=== PATIENT | female | born 1955 | race African-American/Black ===

== ENCOUNTER 2018-04-12 22:40 | Inpatient (IN) | payer MEDICAID, MEDICARE, OTHER ==
[~2018-04-12] VITALS: Ht 165.1 cm; Wt 61.7 kg
[2018-04-12] MEDS ORDERED: ASPIRIN81 MG ORAL (22:46)
[2018-04-12] MEDS ORDERED: SPIRONOLACTONE100 MG ORAL (22:46)
[2018-04-12] MEDS ORDERED: PANTOPRAZOLE SO40 MG ORAL (22:46)
[2018-04-12] MEDS ORDERED: FUROSEMIDE20 M1 ORAL (22:46)
[2018-04-12] MEDS ORDERED: NADOLOL20 MG ORAL (22:46)
[2018-04-12] MEDS ORDERED: LACTULOSE20 GM/301 ORAL (22:46)
[2018-04-12] MEDS ORDERED: Sodium Chloride 500ML 500 ML IV ONE (23:15)
--- NOTE | 2018-04-12 23:28 | Emergency Room Report ---
History of Present Illness General Chief Complaint: Back Pain-No Injury Source: Patient, EMS Present Illness HPI Patient is a 62-year-old female presented after increased back pain. The patient had reportedly recently been released from [facility]. She was noted to have prior history of cirrhosis as well as chronic pain. The patient was having worsening back pain. She reported had been recently transfused while in the hospital. At the time of discharge patient was noted to have hemoglobin of 8. The patient was having increased pain to her low back. This is worse with movement. Allergies: Coded Allergies: MORPHINE (Verified Allergy, Unknown, 04/12/18) Patient History Past Medical History: see triage record Last Menstrual Period: n/a Reviewed Nursing Documentation: PMH: Agreed; PSxH: Agreed Nursing Documentation-PMH Hx Cardiac Problems: Yes Hx Asthma: Yes Review of Systems All Other Systems: limited - by poor historian Physical Exam Vital Signs Date Time Temp Pulse Resp B/P (MAP) Pulse Ox O2 Delivery O2 Flow Rate FiO2 04/12/18 22:34 97.9 72 20 84/54 99 Room Air 97.9 General Appearance: alert, GCS 15, Chronically Ill Respiratory: chest non-tender, lungs clear Cardiovascular #1: normal inspection, normal peripheral pulses, regular rate, rhythm, edema Gastrointestinal: distended, tenderness Musculoskeletal: normal inspection, back normal Neurologic: normal inspection, alert, oriented x3, responsive Skin: jaundice, other - bruising to abdomen Medical Decision Making Diagnostic Impression: Primary Impression: Back pain Additional Impressions: Hypotension Urinary tract infection Cirrhosis ER Course Patient presented for abdominal pain. Differential diagnoses included ischemic bowel, appendicitis, perforated viscus, abdominal aortic aneurysm, inferior myocardial infarction, viral gastroenteritisThe patient noted to have evidence of anemia. CT the abdomen pelvis read by radiology showed a small pleural effusion with moderate ascites. The patient initially noted to be hypotensive. Dr. Wallace was contacted for inpatient management Labs Test 04/12/18 23:40 04/13/18 00:10 04/13/18 02:02 White Blood Count 13.5 K/UL (4.8-10.8) Red Blood Count 2.88 M/UL (4.20-5.40) Hemoglobin 8.7 G/DL (12.0-16.0) Hematocrit 26.6 % (37.0-47.0) Mean Corpuscular Volume 92 FL (80-99) Mean Corpuscular Hemoglobin 30.4 PG (27.0-31.0) Mean Corpuscular Hemoglobin Concent 32.9 G/DL (32.0-36.0) Red Cell Distribution Width 17.6 % (11.6-14.8) Platelet Count 90 K/UL (150-450) Mean Platelet Volume 8.8 FL (6.5-10.1) Neutrophils (%) (Auto) % (45.0-75.0) Lymphocytes (%) (Auto) % (20.0-45.0) Monocytes (%) (Auto) % (1.0-10.0) Eosinophils (%) (Auto) % (0.0-3.0) Basophils (%) (Auto) % (0.0-2.0) Prothrombin Time 19.2 SEC (9.30-11.50) Prothromb Time International Ratio 1.9 (0.9-1.1) Activated Partial Thromboplast Time 42 SEC (23-33) Sodium Level 135 MMOL/L (136-145) Potassium Level 4.6 MMOL/L (3.5-5.1) Chloride Level 103 MMOL/L (98-107) Carbon Dioxide Level 25 MMOL/L (21-32) Anion Gap 7 mmol/L (5-15) Blood Urea Nitrogen 22 mg/dL (7-18) Creatinine 1.0 MG/DL (0.55-1.30) Estimat Glomerular Filtration Rate > 60 mL/min (>60) Glucose Level 97 MG/DL (74-106) Calcium Level 8.8 MG/DL (8.5-10.1) Phosphorus Level 2.3 MG/DL (2.5-4.9) Magnesium Level 1.6 MG/DL (1.8-2.4) Total Bilirubin 13.4 MG/DL (0.2-1.0) Direct Bilirubin 3.5 MG/DL (0.0-0.3) Aspartate Amino Transf (AST/SGOT) 112 U/L (15-37) Alanine Aminotransferase (ALT/SGPT) 49 U/L (12-78) Alkaline Phosphatase 199 U/L (46-116) Total Creatine Kinase 316 U/L (26-308) Creatine Kinase MB 3.7 NG/ML (0.0-3.6) Creatine Kinase MB Relative Index 1.1 Troponin I 0.013 ng/mL (0.000-0.056) Total Protein 7.6 G/DL (6.4-8.2) Albumin 2.4 G/DL (3.4-5.0) Globulin 5.2 g/dL Albumin/Globulin Ratio 0.5 (1.0-2.7) Urine Color Yellow Urine Appearance Cloudy Urine pH 5 (4.5-8.0) Urine Specific [place] 1.020 (1.005-1.035) Urine Protein 1+ (NEGATIVE) Urine Glucose (UA) Negative (NEGATIVE) Urine Ketones 2+ (NEGATIVE) Urine Blood 4+ (NEGATIVE) Urine Nitrite Positive (NEGATIVE) Urine Bilirubin 3+ (NEGATIVE) Urine Ictotest Positive (NEGATIVE) Urine Urobilinogen 8 MG/DL (0.0-1.0) Urine Leukocyte Esterase 2+ (NEGATIVE) Urine RBC 2-4 /HPF (0 - 2) Urine WBC 5-10 /HPF (0 - 2) Urine Squamous Epithelial Cells Many /LPF (NONE/OCC) Urine Bacteria Moderate /HPF (NONE) Urine Hyaline Casts 0-2 /LPF (NONE) Urine Fine Granular Casts 0-2 /LPF (NONE) Lactic Acid Level 1.40 mmol/L (0.66-2.22) EKG Diagnostic Results Rate: normal - 71 Rhythm: NSR ST Segments: no acute changes Last Vital Signs Date Time Temp Pulse Resp B/P (MAP) Pulse Ox O2 Delivery O2 Flow Rate FiO2 04/12/18 22:34 97.9 72 20 84/54 99 Room Air 97.9 Status: unchanged Disposition: ADMITTED INPATIENT Condition: Serious Hugo Iyv MD Apr 12, 2018 23:28
[2018-04-12] MEDS ORDERED: Isovue-300 100ml vial INJ PRN (23:30)
[2018-04-13] VITALS (7 sets, daily range): BP systolic 99–106; BP diastolic 44–60
[2018-04-13 00:11] LABS: HEMATOCRIT 26.6 % (37.0-47.0); HEMOGLOBIN 8.7 G/DL (12.0-16.0); MEAN CORPUSCULAR VOLUME 92 FL (80-99); PLATELET COUNT 90 K/UL (150-450); RED BLOOD COUNT 2.88 M/UL (4.20-5.40); RED CELL DISTRIBUTION WIDTH 17.6 % (11.6-14.8); WHITE BLOOD COUNT 13.5 K/UL (4.8-10.8)
[2018-04-13 00:15] LABS: ANION GAP 7 mmol/L (5-15); BLOOD UREA NITROGEN 22 mg/dL (7-18); CALCIUM 8.8 MG/DL (8.5-10.1); CARBON DIOXIDE 25 MMOL/L (21-32); CHLORIDE 103 MMOL/L (98-107); POTASSIUM 4.6 MMOL/L (3.5-5.1); SODIUM 135 MMOL/L (136-145)
[2018-04-13 00:16] LABS: INR 1.9 (0.9-1.1)
[2018-04-13 00:22] LABS: APPEARANCE,URINE CLOUDY; BILIRUBIN, URINE 3+ (NEGATIVE); GLUCOSE, URINE (UA) NEGATIVE (NEGATIVE); KETONES,URINE 2+ (NEGATIVE); LEUKOCYTE ESTERASE ,URINE 2+ (NEGATIVE); NITRITE,URINE POSITIVE (NEGATIVE); PH,URINE 5 (4.5-8.0); PROTEIN,URINE 1+ (NEGATIVE); UROBILINOGEN,URINE 8 MG/DL (0.0-1.0)
[2018-04-13 00:28] LABS: ALANINE AMINOTRANSFERASE 49 U/L (12-78); ALBUMIN 2.4 G/DL (3.4-5.0); ALBUMIN/GLOBULIN RATIO 0.5 (1.0-2.7); ALKALINE PHOSPHATASE 199 U/L (46-116); ASPARTATE AMINO TRANSFERASE 112 U/L (15-37); BILIRUBIN,TOTAL 13.4 MG/DL (0.2-1.0); CKMB 3.7 NG/ML (0.0-3.6); CREATINE KINASE 316 U/L (26-308); PHOSPHORUS 2.3 MG/DL (2.5-4.9)
[2018-04-13 00:36] LABS: BILIRUBIN,DIRECT 3.5 MG/DL (0.0-0.3)
[2018-04-13 00:38] LABS: COLOR,URINE YELLOW
[2018-04-13] MEDS ORDERED: ALBUTEROL SULF8.5 GM INH (01:59)
[2018-04-13] MEDS ORDERED: cefTRIAXone 1 GM in NS 55 ML IVPB ONE (02:00)
[2018-04-13] MEDS ORDERED: FLUTICASONE PRO16 G1 NASAL (02:18)
[2018-04-13] MEDS ORDERED: ZYRTEC10 MG ORAL (02:18)
[2018-04-13] MEDS ORDERED: NORCO 5-325 TA1 EACH ORAL (02:24)
[2018-04-13] MEDS ORDERED: [UNRECOGNIZED DRUG - CODE] PO (02:24)
[2018-04-13] MEDS ORDERED: BREO ELLIPTA 21 EACH IH (02:24)
[2018-04-13] MEDS ORDERED: FUROSEMIDE40 MG ORAL (02:24)
[2018-04-13] MEDS ORDERED: PHYTONADIONE5 MG PO (02:24)
[2018-04-13] MEDS ORDERED: LACTULOSE10 GM/155 PO (02:24)
[2018-04-13] MEDS ORDERED: PROTONIX20 MG ORAL (02:24)
[2018-04-13] MEDS ORDERED: Morphine Sulfate 2mg/ml Inj IVP PRN (07:00)
[2018-04-13] MEDS ORDERED: Norco 5mg/325mg tab ORAL PRN (10:00)
--- NOTE | 2018-04-13 10:09 | History and Physical ---
History of Present Illness General Reason for Hospitalization: Back Pain-No Injury Present Illness HPI 62-year-old female with endstage ETOH liver cirrhosis presented to ER with CC of increased back pain. The patient had reportedly recently been released from [facility]. The patient was having worsening back pain. She was discharged to recuperative care without any pain medication. Allergies: Coded Allergies: MORPHINE (Verified Allergy, Unknown, 04/12/18) Medication History Scheduled Albuterol Sulfate* (Albuterol Sulfate Mdi*), 1 PUFF INH Q4HR, (Reported) Aspirin* (Aspirin*), Unknown Dose ORAL DAILY, (Reported) Cetirizine Hcl* (Zyrtec*), 10 MG ORAL DAILY, (Reported) Fluticasone Propionate* (Fluticasone Propionate*), 1 SPRAY NASAL TWICE A DAY, ( Reported) Furosemide* (Lasix*), 40 MG ORAL TWICE A DAY, (Reported) Lactulose (Lactulose), 45 GM PO TID, (Reported) Magnesium Oxide/Mag Aa Chelate (Magnesium 300 Mg Capsule), 500 MG PO BID, ( Reported) Nadolol (Nadolol*), Unknown Dose ORAL DAILY, (Reported) Pantoprazole Sodium (Protonix), 40 MG ORAL BID, (Reported) Pantoprazole* (Pantoprazole*), Unknown Dose ORAL DAILY, (Reported) Spironolactone* (Spironolactone*), Unknown Dose ORAL DAILY, (Reported) Scheduled PRN Hydrocodone Bit/Acetaminophen 5-325* ([place] 5-325*), 1 TAB ORAL Q4H PRN for For Pain, (Reported) Miscellaneous Medications Fluticasone/Vilanterol (Breo Ellipta 200-25 Mcg INH), 1 EACH IH, (Reported) Lactulose (Lactulose*), Unknown Dose ORAL, (Reported) Phytonadione (Vit K1) (Phytonadione), 5 MG PO, (Reported) Discontinued Medications Furosemide* (Lasix*), Unknown Dose ORAL DAILY, (Reported) Discontinued Reason: Medication dose changed Patient History Healthcare decision maker Resuscitation status Full Code Advanced Directive on File Past Medical/Surgical History Past Medical/Surgical History: (1) History of ETOH abuse Review of Systems Constitutional: Reports: malaise Musculoskeletal: Reports: back pain Physical Exam General Appearance: cachetic, other - icteric Lines, tubes and drains: peripheral HEENT: normocephalic, atraumatic, anicteric, PERRL Neck: non-tender, normal alignment Respiratory/Chest: chest wall non-tender, lungs clear Cardiovascular/Chest: normal peripheral pulses, normal rate Abdomen: normal bowel sounds Genitourinary/Rectal: normal genital exam, normal rectal exam Last 24 Hour Vital Signs Date Time Temp Pulse Resp B/P (MAP) Pulse Ox O2 Delivery O2 Flow Rate FiO2 04/13/18 08:00 Room Air 04/13/18 08:00 97.5 80 21 106/58 (74) 96 97.5 04/13/18 07:52 80 04/13/18 05:30 Room Air 04/13/18 05:00 97.8 80 16 105/50 98 Room Air 04/13/18 04:33 77 04/13/18 04:25 Room Air 04/13/18 04:25 97.7 76 20 100/60 (73) 96 97.7 04/13/18 04:20 97.9 75 16 105/50 98 Room Air 97.9 04/13/18 03:50 97.9 75 11 102/50 98 Room Air 97.9 04/13/18 02:40 97.2 75 12 99/47 98 Room Air 97.2 04/13/18 00:14 97.2 75 15 100/50 96 Room Air 97.2 04/12/18 22:34 97.9 72 20 84/54 99 Room Air 97.9 Intake and Output 04/12/18 04/13/18 19:00 07:00 Intake Total 1605 ml Balance 1605 ml Intake Oral 0 ml IV Total 1605 ml Laboratory Tests Test 04/12/18 23:40 04/13/18 00:10 04/13/18 02:02 White Blood Count 13.5 K/UL (4.8-10.8) H Red Blood Count 2.88 M/UL (4.20-5.40) L Hemoglobin 8.7 G/DL (12.0-16.0) L Hematocrit 26.6 % (37.0-47.0) L Mean Corpuscular Volume 92 FL (80-99) Mean Corpuscular Hemoglobin 30.4 PG (27.0-31.0) Mean Corpuscular Hemoglobin Concent 32.9 G/DL (32.0-36.0) Red Cell Distribution Width 17.6 % (11.6-14.8) H Platelet Count 90 K/UL (150-450) L Mean Platelet Volume 8.8 FL (6.5-10.1) Neutrophils (%) (Auto) % (45.0-75.0) Lymphocytes (%) (Auto) % (20.0-45.0) Monocytes (%) (Auto) % (1.0-10.0) Eosinophils (%) (Auto) % (0.0-3.0) Basophils (%) (Auto) % (0.0-2.0) Prothrombin Time 19.2 SEC (9.30-11.50) H Prothromb Time International Ratio 1.9 (0.9-1.1) H Activated Partial Thromboplast Time 42 SEC (23-33) H Sodium Level 135 MMOL/L (136-145) L Potassium Level 4.6 MMOL/L (3.5-5.1) Chloride Level 103 MMOL/L (98-107) Carbon Dioxide Level 25 MMOL/L (21-32) Anion Gap 7 mmol/L (5-15) Blood Urea Nitrogen 22 mg/dL (7-18) H Creatinine 1.0 MG/DL (0.55-1.30) Estimat Glomerular Filtration Rate > 60 mL/min (>60) Glucose Level 97 MG/DL (74-106) Lactic Acid Level 2.10 mmol/L (0.4-2.0) H 1.40 mmol/L (0.66-2.22) Calcium Level 8.8 MG/DL (8.5-10.1) Phosphorus Level 2.3 MG/DL (2.5-4.9) L Magnesium Level 1.6 MG/DL (1.8-2.4) L Total Bilirubin 13.4 MG/DL (0.2-1.0) H Direct Bilirubin 3.5 MG/DL (0.0-0.3) H Aspartate Amino Transf (AST/SGOT) 112 U/L (15-37) H Alanine Aminotransferase (ALT/SGPT) 49 U/L (12-78) Alkaline Phosphatase 199 U/L (46-116) H Total Creatine Kinase 316 U/L (26-308) H Creatine Kinase MB 3.7 NG/ML (0.0-3.6) H Creatine Kinase MB Relative Index 1.1 Troponin I 0.013 ng/mL (0.000-0.056) Total Protein 7.6 G/DL (6.4-8.2) Albumin 2.4 G/DL (3.4-5.0) L Globulin 5.2 g/dL Albumin/Globulin Ratio 0.5 (1.0-2.7) L Urine Color Yellow Urine Appearance Cloudy Urine pH 5 (4.5-8.0) Urine Specific [place] 1.020 (1.005-1.035) Urine Protein 1+ (NEGATIVE) H Urine Glucose (UA) Negative (NEGATIVE) Urine Ketones 2+ (NEGATIVE) H Urine Blood 4+ (NEGATIVE) H Urine Nitrite Positive (NEGATIVE) H Urine Bilirubin 3+ (NEGATIVE) H Urine Ictotest Positive (NEGATIVE) Urine Urobilinogen 8 MG/DL (0.0-1.0) H Urine Leukocyte Esterase 2+ (NEGATIVE) H Urine RBC 2-4 /HPF (0 - 2) H Urine WBC 5-10 /HPF (0 - 2) H Urine Squamous Epithelial Cells Many /LPF (NONE/OCC) H Urine Bacteria Moderate /HPF (NONE) H Urine Hyaline Casts 0-2 /LPF (NONE) H Urine Fine Granular Casts 0-2 /LPF (NONE) H Height (Feet): 5 Height (Inches): 5.00 Weight (Pounds): 136 Medications Current Medications Medications (Trade) Dose Ordered Sig/Jina Route PRN Reason Start Time Stop Time Status Last Admin Dose Admin Acetaminophen/ Hydrocodone Bitart ([place] 5/325) 1 tab Q4H PRN ORAL Moderate Pain (Pain Scale 4-6) 04/13/18 10:00 04/20/18 09:59 UNV Iopamidol (Isovue-300 100ml) 100 ml NOW PRN INJ Radiology Procedure 04/12/18 23:30 Piperacillin Sod/ Tazobactam Sod 3.375 gm/Sodium Chloride 110 ml @ 27.5 mls/hr Q8H IVPB 04/13/18 11:00 04/20/18 10:59 Assessment/Plan Problem List: (1) Cirrhosis ICD Codes: K74.60 - Unspecified cirrhosis of liver SNOMED: 02406761 (2) Icterus ICD Codes: R17 - Unspecified jaundice SNOMED: 73500842 (3) Hyperbilirubinemia ICD Codes: E80.6 - Other disorders of bilirubin metabolism SNOMED: 84665665 (4) Back pain ICD Codes: M54.9 - Dorsalgia, unspecified SNOMED: 687719504 (5) Hypotension ICD Codes: I95.9 - Hypotension, unspecified SNOMED: 13656033 (6) History of ETOH abuse ICD Codes: Z87.898 - Personal history of other specified conditions SNOMED: 442222796 Assessment/Plan comfort care pt qualifies for end of life care based on Medicare hospice criteria symptomatic treatment pain management. Joesph Wallace MD Apr 13, 2018 10:09
--- NOTE | 2018-04-13 10:20 | Diagnostic Imaging Report ---
Indication: Shortness of breath Technique: One view of the chest Comparison: Shortness of breath Findings: Lungs and pleural spaces are clear. Heart size is normal. Impression: No acute process
--- NOTE | 2018-04-13 10:31 | Diagnostic Imaging Report ---
Clinical Indication: Abdominal pain Technique: No oral contrast utilized, per emergency room physician request IV administration nonionic contrast. Venous phase spiral acquisition obtained through the abdomen and pelvis. Multiplanar reconstructions were generated. Total dose length product 855.86 mGycm. CTDIvol(s) 16.38 mGy. Dose reduction achieved using automated exposure control Comparison: none Findings: There is a moderate amount of ascites fluid. There is generalized edema of the subcutaneous and abdominal fat. The appendix is normal. There are scattered colonic diverticula. No evidence of diverticulitis. No free intraperitoneal gas. No small bowel distention. There is mild wall thickening of the distal esophagus. The stomach is unremarkable. There is a large duodenal diverticulum The liver is somewhat atrophic, demonstrates irregular surface nodularity. Bridging segments 4A and 4B is a 3.5 cm cyst. Subcentimeter lesions are seen within the liver, which are too small to characterize. Small perigastric and periesophageal varices are noted The gallbladder demonstrates mild wall thickening but no stones. There is mild ectasia of the extrahepatic bile ducts, common bile duct measuring up to 10 mm in diameter. No definite downstream obstructive lesion demonstrated. The pancreas, spleen are unremarkable. The adrenals are atrophic bilaterally. The kidneys are unremarkable. There are prominent but not frankly enlarged retroperitoneal lymph nodes. A few prominent nodes are seen in the pericardial fat. The uterus is absent, presumably postsurgically. No pelvic mass or adenopathy. There is a small right pleural effusion. There are posterior atelectatic changes at the lung bases bilaterally. The bones demonstrate evidence of prior lumbar fusion surgery at L4, L5, and S1. Impression: Evidence of hepatic cirrhosis Stigmata portal hypertension, with ascites and small perigastric and periesophageal varices Anasarca, with, in addition to the ascites, small right pleural effusion and generalized edema of the subcutaneous and mesenteric fat Mild extrahepatic biliary ductal ectasia, but no definite downstream obstructive lesion. Correlate with liver function tests, consider MRCP if clinically indicated Liver cysts. Subcentimeter low-attenuation liver lesions which are too small to characterize, most likely benign simple cysts or bile hamartomas Other findings as noted, including posterior dependent pulmonary atelectatic changes, evidence of prior lumbar fusion surgery, evidence of prior hysterectomy, large duodenal diverticulum This agrees with the preliminary interpretation provided overnight by [employer] teleradiology service. The CT scanner at [facility] is accredited by the [employer] and the scans are performed using protocols designed to limit radiation exposure to as low as reasonably achievable to attain images of sufficient resolution adequate for diagnostic evaluation.
[2018-04-13] MEDS ORDERED: Piperacillin/Tazobactam 3.375 GM in NS 110 ML IVPB SCH (11:00)
--- NOTE | 2018-04-14 11:10 | Discharge Summary ---
Discharge Summary Discharge Summary _ DATE OF ADMISSION: 04/13/2018 DATE OF DISCHARGE: 04/13/2018 BRIEF HOSPITAL COURSE: Patient is a 62-year-old female, who presented to ED via EMS for complaints of back pain. Patient had reportedly been recently released from [facility]. She has history of cirrhosis as well as chronic pain. She was recently transfused while she was at the hospital. At the time of discharge she was noted to have hemoglobin around 8. She was discharged to recuperative care without any pain medications. She was having worsening back pain worse with movement. On evaluation at ED, blood pressure was 84/54, blood work showed slight leukocytosis with WBC of 13.5, hemoglobin was 8.7, hematocrit 26. Platelets 90. INR 1.9. She had elevated direct bilirubin 3.5 AST was 112 , alkaline phosphatase 199. Urinalysis showed 5-10 WBC, 2-4 RBC, 2+ leukocyte esterase, positive nitrite, 2+ leukocyte esterase, 2+ ketones, 4+ blood, and 3+ bilirubin. CT of the abdomen and pelvis showed small pleural effusion with moderate ascites. Chest x-ray with no acute process. She was given albumin in IV. She was given 1 dose of Rocephin at ED. She was admitted to [facility]. She was given IV fluids. She was started on Zosyn. She was given Central for pain management. Magnesium was 1.6, she was given mag sulfate 1 g IV. Patient qualifies for end-of-life care based on Medicare hospice criteria. Urine culture did not isolate any growth. Blood culture did not isolate any growth. Blood pressure improved. Social service was called in to assess homelessness. She was discharged back to recuperative care with pain medications. She was given transportation and medications upon discharge. FINAL DIAGNOSES: Liver cirrhosis Hyperbilirubinemia Hypotension History of EtOH abuse Chronic pain syndrome UTI DISPOSITION: Patient was discharged to [facility]. DISCHARGE MEDICATIONS: Refer to Discharge Medication List. DISCHARGE INSTRUCTIONS: Follow up with PCP in a week. I have been assigned to dictate discharge summary on this account, and I was not involved in the patient's management. Chelsey Piedra NP Apr 14, 2018 11:10
== END 2018-04-13 18:09 | disposition home or self-care (01) | DRG 433 ==
LOC: EDBD 22:40 → EMR 23:28 → 2W 04-13 02:00 → EDBEDREQ 04-13 03:05
DX: K70.31 Alcoholic cirrhosis of liver with ascites (principal); N39.0 Urinary tract infection, site not specified; I95.9 Hypotension, unspecified; G89.4 Chronic pain syndrome; Z88.6 Allergy status to analgesic agent; Z51.5 Encounter for palliative care
CPT/HCPCS: 36415; 71045; 74177; 80053; 81003; 82248; 82550; 82553; 83605; 83735; 84100; 84484; 85025; 85610; 85730; 86850; 86900; 86901; 86920; 87040; 87081; 87086; 93005; 96365; 96375; 99285